=== PATIENT | female | born 1950 | race Caucasian/White ===

== ENCOUNTER 2017-03-12 17:30 | Emergency (ER) | payer OTHER ==
[2017-03-12 19:37] VITALS: BP 132/66
== END 2017-03-12 19:37 | disposition home or self-care (01) ==
LOC: ED 17:30
DX: H66.93 Otitis media, unspecified, bilateral (principal); R42 Dizziness and giddiness

== ENCOUNTER 2020-04-17 12:51 | Emergency (ER) | payer MEDICARE, OTHER ==
[~2020-04-17] VITALS: Ht 162.6 cm; Wt 50.8 kg
[2020-04-17 13:39] VITALS: Ht 162.6 cm; Wt 50.8 kg
[2020-04-17 18:18] VITALS: BP 96/50
== END 2020-04-17 18:18 | disposition home or self-care (01) ==
LOC: ED 12:51
DX: M54.5 Low back pain (principal); T14.8XXA Other injury of unspecified body region, initial encounter; Z98.890 Other specified postprocedural states; X58.XXXA Exposure to other specified factors, initial encounter; Y93.89 Activity, other specified; Y92.89 Other specified places as the place of occurrence of the external cause; Y99.8 Other external cause status
CPT/HCPCS: J1885